=== PATIENT | female | born 1990 | race Caucasian/White ===

== ENCOUNTER 2016-10-08 09:08 | Emergency (ER) | payer OTHER ==
[~2016-10-08] VITALS: Ht 157.5 cm; Wt 52.5 kg
[2016-10-08 09:15] VITALS: Ht 157.5 cm; Wt 52.5 kg
[2016-10-08] MEDS ORDERED: ONDANSETRON (ODT) 4 MG TAB ODT STA (10:07)
[2016-10-08 10:16] LABS: URINE BLOOD (Dip) POC Trace-intact (NEGATIVE)
[2016-10-08 10:45] LABS: BASOPHILS % 0.2 % (0.0-2.0); EOSINOPHILS % 0.3 % (0.0-7.0); HEMATOCRIT 41.5 % (37.0-47.0); HEMOGLOBIN 13.8 g/dl (12.0-16.0); LYMPHOCYTES # 1.2 10^3/ul (0.8-2.9); LYMPHOCYTES % 22.1 % (15.0-51.0); MEAN CORPUSCULAR HEMOGLOBIN 29.4 pg (29.0-33.0); MEAN CORPUSCULAR HGB CONC 33.3 g/dl (32.0-37.0); MEAN CORPUSCULAR VOLUME 88.3 fl (82.0-101.0); MEAN PLATELET VOLUME 7.7 fl (7.4-10.4); MONOCYTE # 0.4 10^3/ul (0.3-0.9); MONOCYTES % 6.9 % (0.0-11.0); NEUTROPHIL # 3.8 10^3/ul (1.6-7.5); NEUTROPHILS % 70.5 % (39.0-77.0); PLATELET COUNT 237 10^3/UL (140-440); RED CELL DISTRIBUTION WIDTH 12.5 % (11.5-14.5); UNCORRECTED WBC 5.5 10^3/ul (4.8-10.8); WHITE BLOOD COUNT 5.5 10^3/ul (4.8-10.8)
--- NOTE | 2016-10-08 10:52 | RADRPT ---
PROCEDURE: US OB. CLINICAL INDICATION: Pelvic pain TECHNIQUE: Transabdominal and transvaginal imaging of the pelvis was performed. Images are review ed on a high-resolution PACS workstation. COMPARISON: None available FINDINGS: Single intrauterine gestation is identified. heart rate is 103 bpm. [place]-rump length = 0.50 cm. Gestational age is 6 weeks 2 days and ANASTASIA is 06/01/2017 by ultrasound criteria. Gestational age is 6 weeks 6 days and ANASTASIA is 05/28/2017 by LMP. Right ovary demonstrates a 2 cm corpus luteum cyst. Left ovary is unremarkable. No ovarian torsion, adnexal mass or pelvic free fluid is identified. IMPRESSION: 1. Single live intrauterine with an estimated gestational age of 6 weeks 2 days by ultras ound criteria, as above. RPTAT: EE .Ayo Fairbanks MD, Date Time Electronically viewed and signed by .Ayo Fairbanks MD, on 10/08/2016 10:52 .R/
[2016-10-08 11:06] LABS: CONDITION 1
[2016-10-08] MEDS ORDERED: ONDA4TAB14 PO (11:45)
[2016-10-08] MEDS ORDERED: NITR-58 PO (11:50)
[2016-10-08 12:43] VITALS: BP 124/78; PULSE 67; RESP 18; TEMP 98.6
--- NOTE | 2016-10-08 14:20 | ERD ---
DATE OF SERVICE: 10/08/2016 HISTORY OF PRESENT ILLNESS: The patient is a 26-year-old female coming in complaining of abdominal pain in the lower pelvic region, with a headache and diarrhea. Patient states that she has been vom iting, and had nausea. She does have diffuse body aches. No medication for her symptoms. Denies f elsy. Denies sick contacts. No change in urination. MEDICAL HISTORY: Denies. ALLERGIES TO MEDICATIONS: Denies. SURGICAL HISTORY: Denies. SOCIAL HISTORY: Denies. Last known menstrual period was 08/21/2016. Is sexually active, with no use of protection. REVIEW OF SYSTEMS: A 12-point review of systems was done. Refer to HPI for positives, all other sy stems negative. PHYSICAL EXAMINATION VITAL SIGNS: Temperature is 98.6, pulse 86, blood pressure is 127/80, respiratory rate 18, O2 satur ation 98% on room air. Pain intensity is 0/10. GENERAL: The patient is well-appearing, well-nourished, no acute distress. HEART: Regular rate and rhythm. No murmurs, clicks, rubs or gallops. No S3 or S4. CHEST: Clear to auscultation bilaterally. There are no rales, wheezes or rhonchi. HEENT: Atraumatic. Conjunctivae are pink. Pupils equal, round, and reactive to light. There is no s cleral icterus. Tympanic membranes clear bilaterally. Oropharynx clear. No nystagmus or photophobia . ABDOMEN: Soft, nontender and nondistended. Good bowel sounds. No rebound or guarding. No gross marian tonitis. No gross organomegaly or masses. No Dial sign or McBurney point tenderness. SKIN: There is no apparent rash or petechia. The skin is warm and dry. BACK: No midline or flank tenderness. EMERGENCY ROOM COURSE: The patient had blood work done in the ER. CBC was within normal limits. B eta quant was 76,076. Patient's urine showed 1+ leukocytes with 4+ ketones. The patient had blood type of A negative. Obstetric ultrasound showed a single live intrauterine gestation age of 6 week s and 2 days by ultrasound criteria as above. Patient given Zofran and p.o. challenge in the ER. P atient did not have vomiting while in the ER. DIAGNOSES: 1. , new diagnosis. 2. Vomiting 3. Urinary tract infection. MEDICAL DECISION MAKING: I have low suspicion for dehydration. The patient's vital signs are stabl e. Patient is tolerating p.o. in the ER and producing urine. The patient is nontoxic appearing and does not appear lethargic. Low suspicion for ectopic , as intrauterine is seen on ultrasound, and a low suspicion for other acute abdominal etiologies. DISCHARGE: The patient is discharged stable. Patient was given a prescription for Zofran and Macro bid. The patient was told if symptoms progress or worsen to return to the ER. Patient was also rec ommended to follow up with OB. All other questions answered at time of discharge. Discharge summar y given at the time of departure. Patient understood and complied with plan. Dictated By: BENJY SCHULTZ DO /NTS Conf#: [id number] DID#: [id number]
== END 2016-10-08 12:40 | disposition home or self-care (01) ==
LOC: FTE 09:08
DX: R11.2 Nausea with vomiting, unspecified (principal); N39.0 Urinary tract infection, site not specified; Z33.1 Pregnant state, incidental
CPT/HCPCS: 36415; 76801; 76817; 81003; 84702; 85025; 86900; 86901; Z7502; Z7610